=== PATIENT | male | born 1990 | race Hispanic/Latino ===

== ENCOUNTER 2016-12-29 15:47 | Emergency (ER) | payer OTHER ==
[2016-12-29 15:57] VITALS: BP 118/64; PULSE 83; RESP 18; TEMP 98; O2SAT 100
--- NOTE | 2016-12-29 17:16 | ED PDOC ---
HPI: General Adult Time Seen by Provider: 12/29/16 16:33 Chief Complaint (Nursing): Abnormal Skin Integrity Chief Complaint (Provider): Swollen right ankle History Per: Patient History/Exam Limitations: no limitations Onset/Duration Of Symptoms: Days (x 1) Current Symptoms Are (Timing): Still Present Additional Complaint(s): Rommel is a 26 y/o male who states that this morning he woke up with moderate warmth, redness, and swelling to the right ankle. Last night saw a bug bite him in same spot. Denies numbness, tingling, fever, and trauma. PMD: Lena Gonzalez MD Past Medical History Reviewed: Historical Data, Nursing Documentation, Vital Signs Vital Signs: Last Vital Signs Temp 98 F 12/29/16 15:51 Pulse 83 12/29/16 15:51 Resp 18 12/29/16 15:51 BP 118/64 12/29/16 15:51 Pulse Ox 100 12/29/16 17:18 - Medical History PMH: No Chronic Diseases - Family History Family History: States: Unknown Family Hx - Social History Current smoker - smoking cessation education provided: No Alcohol: None Drugs: Denies - Home Medications Home Medications: Ambulatory Orders Medication Instructions Recorded Amoxicillin/Clavulanate [Augmentin 1 tab PO Q8 #30 tab 12/29/16 500 MG-125 MG] Naproxen [Naprosyn] 500 mg PO BID PRN #30 tab 12/29/16 - Allergies Allergies/Adverse Reactions: Allergies Allergy/AdvReac Type Severity Reaction Status Date / Time No Known Allergies Allergy Verified 12/29/16 15:51 Review of Systems ROS Statement: Except As Marked, All Systems Reviewed And Found Negative Constitutional: Negative for: Fever, Other (Trauma) Musculoskeletal: Positive for: Foot Pain (Right ankle swelling with redness and warmth) Neurological: Negative for: Numbness, Other (Tingling) Physical Exam - Reviewed Nursing Documentation Reviewed: Yes Vital Signs Reviewed: Yes - Physical Exam Appears: Positive for: Well, Non-toxic, No Acute Distress Pulses-Dorsalis Pedis (L): 2+ Pulses-Dorsalis Pedis (R): 2+ Extremity: Positive for: Capillary Refill (< 2 sec), Swelling (Moderate swelling , warmth and erythema to lateral malleolus), Other (Superficial puncture wound to the lateral malleolus) - Laboratory Results Result Diagrams: 12/29/16 17:32 12/29/16 17:32 - ECG O2 Sat by Pulse Oximetry: 100 (RA) Pulse Ox Interpretation: Normal - Radiology X-Ray: Interpreted by Me (Ankle x-ray) X-Ray Interpretation: No Acute Disease Medical Decision Making Medical Decision Making: Time: 16:37 Initial Plan: --Pending labs --Patient given Ancef 1 gm IV --Pending X-Ray Left Ankle Scribe Attestation: Documented by Yuli Alexander, acting as a scribe for Nathaniel Manzo PA-C. Provider Scribe Attestation: All medical record entries made by the Scribe were at my direction and personally dictated by me. I have reviewed the chart and agree that the record accurately reflects my personal performance of the history, physical exam, medical decision making, and the department course for this patient. I have also personally directed, reviewed, and agree with the discharge instructions and disposition. Disposition - Clinical Impression Clinical Impression: Cellulitis - Patient ED Disposition Is Patient to be Admitted: No - Disposition Referrals: Jose Agustin DPM [Staff Provider] - Disposition: Routine/Home Disposition Time: 18:33 Condition: STABLE Additional Instructions: FOLLOW UP WITH DR. AGUSTIN IN 1 WEEK WITHOUT FAIL. Prescriptions: Amoxicillin/Clavulanate [Augmentin 500 MG-125 MG] 1 tab PO Q8 #30 tab Naproxen [Naprosyn] 500 mg PO BID PRN #30 tab PRN Reason: Pain Instructions: Cellulitis (ED) Forms: [employer] (Japanese)
[2016-12-29 17:36] LABS: BASO # 0.1 K/uL (0.0-0.2); BASO % 0.5 % (0.0-2.0); EOS # 0.3 K/uL (0.0-0.7); EOS % 2.5 % (0.0-4.0); HEMATOCRIT 45.6 % (35.0-51.0); LYMPH # 1.9 K/uL (1.0-4.3); MEAN CELL VOLUME 83.5 fl (80.0-94.0); MEAN CORPUSCULAR HEMOGLOBIN 29.2 pg (27.0-31.0); MEAN PLATELET VOLUME 9.2 fl (7.2-11.7); MONO # 0.9 K/uL (0.0-0.8); MONO % 9.4 % (0.0-10.0); NEUT # 6.9 K/uL (1.8-7.0); NEUT % 68.6 % (50.0-75.0); NRBC % 0.2 % (0.0-0.0); RED CELL DISTRIBUTION WIDTH 14.4 % (11.5-14.5); WHITE BLOOD COUNT 10.1 K/uL (4.8-10.8)
[2016-12-29 17:45] LABS: ALB/GLOB RATIO 1.5 (1.0-2.1); ALKALINE PHOSPHATASE 66 U/L (38-126); ALT/SGPT 74 U/L (21-72); AST/SGOT 40 U/L (17-59); BILIRUBIN,TOTAL 0.5 mg/dl (0.2-1.3); BLOOD UREA NITROGEN 16 mg/dl (9-20); CALCIUM 9.7 mg/dL (8.4-10.2); CARBON DIOXIDE 28 mmol/L (22-30); CHLORIDE 102 mmol/L (98-107); GFR AFRICAN-AMERICAN > 60; GLUCOSE,RANDOM 94 mg/dL (75-110); SODIUM 139 mmol/l (132-148); TOTAL PROTEIN 7.6 G/DL (6.3-8.2)
[2016-12-29] MEDS: ceFAZolin 1 GM in Sodium Chloride 0.9% 100 ML IVPB STA (17:50)
--- NOTE | 2016-12-29 20:57 | CP.PCM.CON ---
History of Present Illness - History of Present Illness History of Present Illness: 26 year old male patient seen in ED at the request for a podiatry consult. Patient seen resting comfortably, AAOx3 and NAD. Patient [place] bite to his left ankle. Patient states that soon after he was bitten, he felt his left ankle swell up. The next day his ankle was hot and swollen, and by this afternoon/early evening he could barely walk. Patient states he experiences the majority of his pain with ambulating. Patient describes the pain as burning and throbbing. Patient denies N/V/F/D/C/ SOB/calf pain. No other pedal complaints at this time. PMH: unremarkable PSH: none FH: none SH: occasional ETOH Meds: none All: NKDA Review of Systems - Review of Systems All systems: reviewed and no additional remarkable complaints except (as per HPI ) Past Patient History - Past Social History Alcohol: None Drugs: Denies - PSYCHIATRIC Hx Substance Use: No Meds Home Medications: Home Medication List Medication Instructions Recorded Confirmed Type Amoxicillin/Clavulanate [Augmentin 1 tab PO Q8 #30 tab 12/29/16 Rx 500 MG-125 MG] Naproxen [Naprosyn] 500 mg PO BID PRN #30 tab 12/29/16 Rx Allergies/Adverse Reactions: Allergies Allergy/AdvReac Type Severity Reaction Status Date / Time No Known Allergies Allergy Verified 12/29/16 15:51 Physical Exam - Constitutional Appears: Well, Non-toxic, No Acute Distress - Extremities Exam Additional comments: LLE focused physical exam: Vasc: DP and PT pulses palpable 2/4. CFT <3 seconds to all digits x5. TG warm to hot. Increase in warmth noted to lateral ankle. Nonpitting edema noted to lateral ankle. Neuro: Gross sensation intact Derm: Erythema noted to lateral ankle extending distally to metatarsal shafts. 2 pinpoint lesions at lateral malleolus with overlying eschar Ortho: Tenderness to palpation lateral fibula - Neurological Exam Neurological exam: Alert, Oriented x3 - Psychiatric Exam Psychiatric exam: Normal Affect, Normal Mood Results - Vital Signs Recent Vital Signs: Last Vital Signs Temp 98 F 12/29/16 15:51 Pulse 83 12/29/16 15:51 Resp 18 12/29/16 15:51 BP 118/64 12/29/16 15:51 Pulse Ox 100 12/29/16 18:37 - Labs Result Diagrams: 12/29/16 17:32 12/29/16 17:32 Labs: Laboratory Results - last 24 hr 12/29/16 12/29/16 17:32 17:32 WBC 10.1 RBC 5.47 Hgb 16.0 Hct 45.6 MCV 83.5 MCH 29.2 MCHC 35.0 RDW 14.4 Plt Count 222 MPV 9.2 Neut % (Auto) 68.6 Lymph % (Auto) 19.0 L [place] % (Auto) 9.4 Eos % (Auto) 2.5 Baso % (Auto) 0.5 Neut # 6.9 Lymph # 1.9 [place] # 0.9 H Eos # 0.3 Baso # 0.1 Sodium 139 Potassium 4.0 Chloride 102 Carbon Dioxide 28 Anion Gap 13 BUN 16 Creatinine 0.9 Est GFR ( Amer) > 60 Est GFR (Non-Af Amer) > 60 Random Glucose 94 Calcium 9.7 Total Bilirubin 0.5 AST 40 ALT 74 H Alkaline Phosphatase 66 Total Protein 7.6 Albumin 4.6 Globulin 3.0 Albumin/Globulin Ratio 1.5 Assessment & Plan - Assessment and Plan (Free Text) Assessment: 26 year old male with unremarkable PMH with LLE cellulitis secondary to bug bite Plan: Patient seen and evaluated at bedside Discussed with attending, Dr. Munoz Chart, labs, vitals reviewed: afebrile, WBC WNL @ 10.1 L ankle XR reviewed: No acute fracture, (-)soft tissue emphysema Recommend Augmentin Patient is to follow up with Dr. Munoz in office in 1 week for follow up of cellulitis Stable per podiatry standpoint Thank you for this consult, please reconsult podiatry again as needed
--- NOTE | 2016-12-30 11:26 | RAD ---
PROCEDURE: Left Ankle Radiographs. HISTORY: Pain. No history of recent/ related trauma provided COMPARISON: None FINDINGS: BONES: Normal. No fracture. JOINTS: Normal. No osteoarthritis. Ankle mortise maintained. Talar dome intact SOFT TISSUES: Normal. OTHER FINDINGS: None. IMPRESSION: No acute findings related to/accounting for the clinical presentation. No preliminary report provided by emergency department personnel.
== END 2016-12-29 19:09 | disposition home or self-care (01) ==
LOC: H.ER 15:47
DX: L03.116 Cellulitis of left lower limb (principal)